=== PATIENT | female | born 1940 | race Caucasian/White ===

== ENCOUNTER 2017-07-07 07:05 | Day surgery (SDC) | payer MEDICARE, BC ==
[~2017-07-07 07:05] MED LIST: ALBUTEROL SUL0.083 % IN; AMLODIPINE5 MG PO; ASPIRIN81 MG PO; BROVANA15 MCG/2 M IN; HUMIRA40 MG/0.8 SC; HYDROXYZINE HCL25 M1 PO; LORAZEPAM0.5 MG PO; MAXZIDE-2537.5 MG/TA PO; NITROSTAT0.4 MG SL; SIMVASTATIN20 MG PO; TRAMADOL HCL50 MG PO
[2017-07-07 10:08] VITALS: BP 139/82
== END 2017-07-07 10:35 | disposition home or self-care (01) ==
LOC: ENDO 07:05
PROVIDERS: ATTEND Internal Medicine Gastroenterology
PROC: 0DBH8ZX Excision of Cecum, Via Natural or Artificial Opening Endoscopic, Diagnostic (ICD-10-PCS; principal; 2017-07-07)
PROC: 0DBE8ZX Excision of Large Intestine, Via Natural or Artificial Opening Endoscopic, Diagnostic (ICD-10-PCS; 2017-07-07)
DX: R10.31 Right lower quadrant pain (principal); R10.32 Left lower quadrant pain; R19.7 Diarrhea, unspecified; K50.10 Crohn's disease of large intestine without complications; K63.5 Polyp of colon; K64.8 Other hemorrhoids; K63.3 Ulcer of intestine; Z79.899 Other long term (current) drug therapy; R19.5 Other fecal abnormalities; K22.70 Barrett's esophagus without dysplasia; K22.2 Esophageal obstruction; K29.70 Gastritis, unspecified, without bleeding; K44.9 Diaphragmatic hernia without obstruction or gangrene; M06.9 Rheumatoid arthritis, unspecified; Z86.010 Personal history of colon polyps; K64.4 Residual hemorrhoidal skin tags